=== PATIENT | female | born 1955 | race Caucasian/White ===

== ENCOUNTER 2019-11-17 14:53 | Emergency (ER) | payer BC, MEDICARE, OTHER ==
--- OUTSIDE RECORDS SUMMARY | 2019-11-17 14:59 | XMS REPORT | Continuity of Care Document ---
:1955 External Reference #:[id number] Author Name Haley Araujo M.D. (transmitted by agent of provider Margarita Delgado) Address [address], [address] [place] [id number] Care Team Providers Name Role Phone Ryne Chua MD - Gastroenterology Care Team Information Advisory Application Developer [facility] - Clinic/Center Care Team Information Advisory Application Developer [place] [facility] - Physical Care Team Information Advisory Application Developer Therapist Haley Araujo MD - Internal Care Team Information Advisory Application Developer [phone] Medicine Jennifer Giordano MD - Allergy & Care Team Information Advisory Application Developer [phone] Immunology Problems Active Problems Provider Date Type 2 diabetes mellitus Haley Araujo M.D. Onset: 12/25/2014 Benign essential hypertension Alejandra Rubio M.D. Onset: 04/13/2012 Pure hypercholesterolemia Alejandra Rubio M.D. Onset: 04/13/2012 Chronic pansinusitis Alejandra Rubio M.D. Onset: 11/28/2012 Asthma without status asthmaticus Alejandra Rubio M.D. Onset: 11/28/2012 Gastroesophageal reflux disease Alejandra Rubio M.D. Onset: 11/29/2013 Spinal stenosis Alvarado Molina M.D. Onset: 07/02/2014 Localized, secondary osteoarthritis Alvarado Molina M.D. Onset: 07/02/2014 Disorder of thyroid gland Zeeshan Tony M.D. Onset: 08/10/2014 Social History Type Date Description Comments Sex Unknown ETOH Use Drinks Alcoholic Beverages Rarely Tobacco Use Start: Unknown Patient has never smoked was a smoker and patient was exposed to second hand smoke for 50 years. Recreational Drug Use Denies Drug Use Smoking Status Reviewed: 10/05/19 Patient has never smoked was a smoker and patient was exposed to second hand smoke for 50 years. Allergies, Adverse Reactions, Alerts Active Allergies Reaction Severity Comments Date Amoxicillin Urticaria Severe 03/15/2012 Prinivil unknown Moderate 03/15/2012 Procardia unknown Severe 03/15/2012 Zestril unknown Severe 03/15/2012 Atorvastatin severe cramping muscle cramping 07/27/2016 Ibuprofen stomach upset after a while 02/16/2019 Cephalosporins 02/16/2019 Carbapenems 02/16/2019 Medications Active Medications SIG Qnty Indications Ordering Provider Date Losartan Potassium 1 by mouth every 90tabs I10 Haley Araujo, 2018 day M.D. 100mg Tablets Pravastatin Sodium Take 3 Tablets By 270tabs E78.5 Haley Van, 01/06 Mouth AT Bedtime M.D. 10mg Tablets Montelukast Sodium Once daily prn Ignacio Ravi NP 08/01/2014 10mg Tablets Budesonide inhaled bid prn 180units Unknown 0.5mg/2ML Suspension Xopenex every 4-6 hrs as 1box Unknown 0.63mg/3ML needed via Nebulizer nebulizer Mucinex 1 tab daily by 60tabs Unknown 600mg mouth as needed Tablets ER 12HR Multi Vitamin Daily qd Unknown Tablets Aspirin Ec 1 by mouth every 90tabs Haley Araujo, 81mg day M.D. Tablets Clindamycin HCL 4 capsule by Unknown mouth prior to 150mg Capsules dental work B Complex Plus prn Unknown Tablets Omeprazole 1-2 tabs by mouth Unknown 20mg every day prn Capsules DR Priya Bhandari inhale 1 puff Unknown daily 200-25mcg/Inh Aerosol Xyzal Allergy 24HR 1 by mouth every Unknown day 5mg Tablets Proair HFA 2 puffs every 4 Unknown hours as needed 108(90Base) mcg/Act Aerosol Spiriva Respimat 2 puffs every in Unknown the morning 2.5mcg/Act Aerosol Medications Administered in Office Medication SIG Qnty Indications Ordering Provider Date Records Fee Haley Araujo M.D. 08/07/2019 Injection Depomedrol 80MG Sha Bowman M.D. 11/17/2013 Injection Depomedrol 80MG Sha Bowman M.D. 05/15/2013 Injection Immunizations CPT Code Status Date Vaccine Reaction Lot # [id number] Given 10/05/2019 Pneumonia Vaccine No immediate [id number] reaction...jh 78219 Given 09/04/2019 Fluzone High Dose [id number] Given 07/07/2018 Pneumococcal Conjugate [id number] Vaccine 13 Valent For Intramuscular Use 90845 Given 12/24/2016 Tetanus And Diptheria (Td) no immediate reaction [id number] For Adult Use Preservative noted .. hh Free Q2037 Given 07/31/2016 Fluvirin Im 3Yrs And Older 98661 Given 09/05/2014 Flu Vaccine Split Virus [id number] Preservative Free For Indiv 3Yr Older 26154 Given 11/28/2012 Zoster (Zostavax) [id number] Vital Signs Date Vital Result Comment 10/05/2019 1:38pm Height 66 inches 5'6" Weight 201.00 lb says scale at home says 192 Heart Rate 68 /min BP Systolic Sitting 139 mmHg BP Diastolic Sitting 85 mmHg BMI (Body Mass Index) 32.4 kg/m2 03/23/2019 4:19pm Height 66 inches 5'6" Weight 200.00 lb Heart Rate 74 /min BP Systolic 134 mmHg BP Diastolic 82 mmHg BP Systolic Sitting 141 mmHg BP Diastolic Sitting 81 mmHg O2 % BldC Oximetry 95 % BMI (Body Mass Index) 32.3 kg/m2 Results Test Acquired Date Facility Test Result H/L Range Note Laboratory test 10/05/2019 [facility] Hemoglobin A1c 6.5 5-7 finding Procedures Date Code Description Status 10/17/2018 356394677 Diabetic Retinal Eye Exam Completed 01/31/2018 [id number] Colonoscopy Completed 01/21/2018 [id number] Mammogram Completed 09/22/2017 [id number] Diabetic Retinal Eye Exam Completed 02/17/2016 [id number] Mammogram Completed 09/29/2015 [id number] Diabetic Retinal Eye Exam Completed 01/10/2015 [id number] Mammogram Completed 01/16/2013 [id number] Colonoscopy Completed 12/07/2012 [id number] Bone Mineral Density Test Completed 12/07/2012 [id number] Mammogram Completed 11/02/2007 [id number] Colonoscopy Completed Medical Devices Description No Information Available Encounters Description No Information Available Assessments Date Code Description Provider 10/05/2019 Z00.00 Encounter for general adult medical Haley Araujo M.D. examination without abnormal findings 10/05/2019 E11.9 Type 2 diabetes mellitus without Haley Araujo M.D. complications 10/05/2019 Z12.31 Encounter for screening mammogram for Haley Araujo M.D. malignant neoplasm of breast 10/05/2019 R05 Cough Haley Araujo M.D. 10/05/2019 Z23 Encounter for immunization Haley Araujo M.D. Plan of Treatment Future Appointment(s):04/04/2020 3:40 pm - Haley Araujo M.D. at [facility]2019 - Haley Araujo M.D.Z00.00 Encounter for general adult medical examination without abnormal findingsNew Orders:EKG, Ordered: 10/05/19Comments:VACCINES:Flu shot every year in the fall. Done in [place]: last one done in 2016Pneumonia vaccine: Prevnar in June 2018. Pneumovax due Shingles vaccine:Zostavax: 50% effective, done in 2012Shingrix: 90 % effective. This is a new shingles vaccine, available at pharmacies. Series of 2 shots, given 2-6 months apart. Most people get a flu-like reaction. Cost is about $400 - call your insurance about coverage. Not widely available - talk to your pharmacist about their waiting list SCREENING:Colonoscopy: last one done in 2018. Follow up in 5 yearsMammogram: last done 01/21/18Pap smear: current guidelines recommend stopping pap smears at age 65Bone density (DEXA): done in January - bone density is above averageScreening for diabetic eye disease and glaucoma: every year unless otherwise instructed by your eye doctor. Last one on file October 2018E11.9 Type 2 diabetes mellitus without complicationsComments:Eye exam next month Your A1C today is 6.5 which is greatFollow up:6 months for istngdesW31.31 Encounter for screening mammogram for malignant neoplasm of [id number] CoughComments:See a [id number] Encounter for immunization Functional Status Description No Information Available Mental Status Description No Information Available Referrals Description No Information Available
[2019-11-17 15:59] VITALS: BP 155/82
--- NOTE | 2019-11-17 16:13 | UC ---
Respiratory Complaint HPI - HPI Summary HPI Summary: 64 yo female presents with cold symptoms. She tells me that over the last 3 weeks she has had mild sinus symptoms consisting of pain/pressure/congestion and runny nose. Over the last week has had a dry cough and has been hoarse. No sore throat. Has been taking OTC sudafed and mucinex with no relief. Denies fever, chills, SOB, rash, n/v - History of Current Complaint Chief Complaint: UCRespiratory Stated Complaint: RESP COMPLAINT Time Seen by Provider: 11/17/19 16:12 Onset/Duration: Gradual Onset Severity Currently: None Pain Intensity: 0 - Allergies/Home Medications Allergies/Adverse Reactions: Allergies Allergy/AdvReac Type Severity Reaction Status Date / Time Adhesive Tape Allergy SKIN Verified 01/25/18 11:08 REDNESS amoxicillin Allergy Unknown Verified 01/25/18 11:08 Reaction Details atorvastatin Allergy See Comment Verified 11/17/19 15:59 ibuprofen Allergy GI Upset Verified 01/25/18 11:08 lisinopril Allergy Unknown Verified 01/25/18 11:08 Reaction Details nifedipine Allergy Unknown Verified 01/25/18 11:08 Reaction Details Penicillins Allergy Rash Verified 11/17/19 15:59 Home Medications: Home Medications Albuterol HFA INHALER* [Ventolin HFA Inhaler*] 2 puff INH Q4H PRN 11/17/19 [ History Confirmed 11/17/19] Multivit-Min/Iron/Folic/Lutein [Centrum Silver Women Tablet] 1 each PO 11/17/19 [History] Pravastatin Sodium 20 mg PO 11/17/19 [History] Pseudoephedrine HCl [Sudafed] 30 mg PO 11/17/19 [History] guaiFENesin [Mucinex] 600 mg PO 11/17/19 [History] PMH/Surg Hx/FS Hx/Imm Hx Cardiovascular History: Hypertension Respiratory History: Asthma - Surgical History Surgical History: Yes Surgery Procedure, Year, and Place: TONSILECTOMY. BUNIONECTOMY LEFT FOOT. TUBAL LIGATION. CYST REMOVED FROM LEFT HAND. VEIN REPAIRED ON RIGHT LEG. RIGHT KNEE ARTHROSCOPY BY DR HUA @ [facility] [place] 08/10/13 - Family History Known Family History: Positive: Respiratory Disease - Social History Occupation: Employed Full-time Lives: With Family Alcohol Use: Occasionally Substance Use Type: None Smoking Status (MU): Never Smoked Tobacco - Immunization History Most Recent Influenza Vaccination: 2011, PT STATES GETS FOR FREE AT WORK. Most Recent Tetanus Shot: UNSURE Most Recent Pneumonia Vaccination: HAS HAD, UNSURE DATE Review of Systems All Other Systems Reviewed And Are Negative: No Constitutional: Positive: Negative Skin: Positive: Negative Eyes: Positive: Negative ENT: Positive: Nasal Discharge, Sinus Congestion, Sinus Pain/Tenderness Respiratory: Positive: Cough Cardiovascular: Positive: Negative Gastrointestinal: Positive: Negative Neurological: Positive: Negative Psychological: Positive: Negative Physical Exam - Summary Physical Exam Summary: GENERAL: NAD. WDWN. No pain distress. SKIN: No rashes, sores, lesions, or open wounds. HEENT: Head: AT/NC Eyes: EOM intact. Conjunctiva clear without inflammation or discharge. Ears: Hearing grossly normal. TMs intact, no bulging, erythema, or edema. Nose: Nasal mucosa pink and moist. NTTP maxillary and frontal sinus. Throat: Posterior oropharynx without exudates, erythema, or tonsillar enlargement. Uvula midline. NECK: Supple. Nontender. No lymphadenopathy. CHEST: CTAB. No accessory muscle use. Breathing comfortably and in no distress. CV: RRR. Pulses intact. Cap refill <2seconds NEURO: Alert. PSYCH: Age appropriate behavior. Triage Information Reviewed: Yes Vital Signs: Initial Vital Signs Temp 97.6 F 11/17/19 15:54 Pulse 74 11/17/19 15:54 Resp 18 11/17/19 15:54 BP 155/82 11/17/19 15:54 Pulse Ox 99 11/17/19 15:54 Vital Signs Reviewed: Yes Respiratory Course/Dx - Course Course Of Treatment: Discussed viral vs bacterial with pt and she prefers to be on anbx at this time given her length of symptoms and changing/worsening symptoms - Differential Dx/Diagnosis Provider Diagnosis: Cough, Sinusitis Discharge ED - Sign-Out/Discharge Documenting (check all that apply): Patient Departure All imaging exams completed and their final reports reviewed: No Studies - Discharge Plan Condition: Stable Disposition: HOME Prescriptions: Benzonatate CAP* [Tessalon 100 MG CAP*] 100 mg PO TID PRN #21 cap PRN Reason: Cough DOXYcycline CAP(*) [DOXYcycline 100MG CAP(*)] 100 mg PO BID #14 cap predniSONE [Prednisone 20 MG TAB] 40 mg PO DAILY 5 Days #10 tablet Patient Education Materials: Sinusitis (ED), Acute Cough (ED) Referrals: Haley Araujo MD [Primary Care Provider] - Additional Instructions: If you develop a fever, shortness of breath, chest pain, new or worsening symptoms - please call your PCP or go to the ED immediately. Your blood pressure was high at todays visit. Please see your primary provider within 4 weeks for recheck and re-evaluation. - Billing Disposition and Condition Condition: STABLE Disposition: Home
== END 2019-11-17 16:38 | disposition home or self-care (01) ==
LOC: UCEAST 14:53
DX: R05 Cough (principal); J32.9 Chronic sinusitis, unspecified; I10 Essential (primary) hypertension; J45.909 Unspecified asthma, uncomplicated; Z91.09 Other allergy status, other than to drugs and biological substances; Z88.0 Allergy status to penicillin; Z88.8 Allergy status to other drugs, medicaments and biological substances; Z88.6 Allergy status to analgesic agent
CPT/HCPCS: 99212; G0463